=== PATIENT | male | born 1955 | race Caucasian/White ===

== ENCOUNTER 2023-08-23 17:21 | Emergency (ER) | payer MEDICARE, OTHER ==
[~2023-08-23] VITALS: Ht 162.6 cm; Wt 73.0 kg
[2023-08-23 17:38] VITALS: BP 136/83; PULSE 64; RESP 18; TEMP 98.7; O2SAT 96
[2023-08-23] MEDS ORDERED: ACET-10509 PO (19:05)
== END 2023-08-23 19:24 | disposition home or self-care (01) ==
LOC: MED 17:21
DX: S09.90XA Unspecified injury of head, initial encounter (principal); Z79.899 Other long term (current) drug therapy; V49.88XA Car occupant (driver) (passenger) injured in other specified transport accidents, initial encounter; Y93.89 Activity, other specified; Y92.89 Other specified places as the place of occurrence of the external cause; Y99.8 Other external cause status
CPT/HCPCS: 70450; 72125; 99284